=== PATIENT | male | born 1990 | race Two or more races ===

== ENCOUNTER 2022-09-29 11:48 | Emergency (ER) | payer MEDICAID ==
[~2022-09-29] VITALS: Ht 177.8 cm; Wt 125.0 kg
[2022-09-29 12:34] VITALS: BP 128/84
[2022-09-29] MEDS ORDERED: CEPH-510 PO (12:52)
[2022-09-29] MEDS ORDERED: TRIA0.02 TOP (12:52)
== END 2022-09-29 13:11 | disposition home or self-care (01) ==
LOC: ER 11:48
DX: T78.40XA Allergy, unspecified, initial encounter (principal); F17.210 Nicotine dependence, cigarettes, uncomplicated; Z88.1 Allergy status to other antibiotic agents; X58.XXXA Exposure to other specified factors, initial encounter